=== PATIENT | female | born 1950 | race Caucasian/White ===

== ENCOUNTER 2020-06-04 18:20 | Emergency (ER) | payer OTHER, SELFPAY ==
[2020-06-04] VITALS (8 sets, daily range): BP systolic 168–195; BP diastolic 72–91; PULSE 54–59; RESP 14–26; O2SAT 97–100
--- NOTE | 2020-06-04 19:01 | ED_ITS ---
HPI - General Adult General Chief complaint: Extremity Injury, Upper Stated complaint: possible blood clot Time Seen by Provider: 06/04/20 18:36 Source: patient and family Mode of arrival: Ambulatory Limitations: no limitations History of Present Illness HPI narrative: Patient is a 69-year-old female who was sent in by her primary doctor for concerns of a potential blood clot in her right upper extremity. History is reported as a couple days ago hurting her right shoulder. Patient states she has torn her rotator cuff in the past and she thought that she tore it again a couple days ago. Since that time in today she has been seen at a walk-in clinic where she received a steroid shot in her right shoulder. It appears that since that time she has had increasing pain in her right hand. Her daughter who is at bedside states that she thought that her hand was white and cold compared to her left hand earlier today. They both admit that this has resolved since that time. Patient is also complaining of pain in her right neck. Also tingling down her right arm. They contacted their primary doctor who told her to come in to be evaluated as they were concerned about a blood clot. Related Data Home Medications Medication Instructions Recorded Confirmed acetaminophen 1,000 mg PO QID 06/04/20 06/04/20 donepezil 10 mg PO DAILY 06/04/20 06/04/20 sertraline 25 mg PO DAILY 06/04/20 06/04/20 verapamil 240 mg PO DAILY 06/04/20 06/04/20 Previous Rx's Medication Instructions Recorded methocarbamol [Robaxin-750] 750 mg PO TID PRN #30 tab 06/04/20 tramadol 50 mg PO Q8H PRN #10 tab 06/04/20 Allergies Allergy/AdvReac Type Severity Reaction Status Date / Time codeine Allergy Severe Vomiting Verified 06/04/20 20:57 Review of Systems Constitutional Constitutional: Denies fever(s) and Denies headache(s) ENT Ears, Nose, Mouth, and Throat: Denies headache(s) and Reports neck pain Cardiovascular Cardiovascular: Denies chest pain and Denies dyspnea Respiratory Respiratory: Denies dyspnea Gastrointestinal Gastrointestinal: Denies abdominal pain, Denies nausea and Denies vomiting Musculoskeletal Musculoskeletal: Reports arthralgias (Right shoulder), Reports neck pain and Reports tingling Integumentary/Breasts Comments: White hand Neurologic Neurologic: Denies headache(s) and Reports tingling Psychiatric Psychiatric: Denies anxiety Patient History Medical History Hypertension Social History lives independently: Yes Exam Initial Vital Signs Initial Vital Signs: Vital Signs Pulse Rate 59 L 06/04/20 18:25 Respiratory Rate 20 06/04/20 18:25 Blood Pressure 177/81 H 06/04/20 18:25 Pulse Oximetry 100 06/04/20 18:25 Const General: cooperative and comfortable Limitations: mental status not altered HENMT Head: normal to inspection and normocephalic Neck Neck: no meningeal signs Lymphatic: No lymphedema and No lymphadenopathy Resp Effort & Inspection: normal respiratory effort Auscultation: clear to auscultation bilaterally Cardio Rate: regular rate Rhythm: regular rhythm Pulses: radial pulses present on the right Back/Spine/Pelvis Cervical Spine: cervical muscular tenderness (Right-sided), No cervical spasm and No cervical spinal tenderness Skin General: No erythema and No pallor Lesions: no lesions Rashes: no rashes Neuro General: patient alert and patient awake Speech: speech normal Sensory Exam: no sensory deficits noted Extrem General: normal to inspection and capillary refill normal Other: Diffuse tenderness around the right shoulder with palpation. Psych Appearance: grossly normal and well kempt Course Orders Ordered: ED Orders 06/04/20 18:37 EKG-12 Lead Stat 06/04/20 19:06 Complete Blood Count AUTO DIFF Stat Comprehensive Metabolic Panel Stat D Dimer Stat Lactate (Lactic Acid) Stat Lipase Stat Partial Thromboplastin Time Stat Prothrombin Time INR Stat Troponin & CK Cardiac Panel Stat Discontinued Medications Acetaminophen/Codeine Phosphate (Codeine/Acetaminophen 30/300 Tablet) 1 tab PO NOW ONE Stop: 06/04/20 20:44 Last Admin: 06/04/20 20:55 Dose: Not Given Documented by: RAQUEL Cyclobenzaprine HCl (Cyclobenzaprine 10 Mg Tablet) 10 mg PO NOW ONE Stop: 06/04/20 20:44 Last Admin: 06/04/20 20:52 Dose: 10 mg Documented by: RAQUEL Sodium Chloride (Normal Saline 0.9%) 1,000 mls @ 1,000 mls/hr IV BOLUS ONE Stop: 12/23/20 19:36 Last Infusion: 06/04/20 20:44 Dose: 0 mls/hr Documented by: Infusion: 06/04/20 19:53 Dose: 999 mls/hr Documented by: Admin: 06/04/20 19:20 Dose: 500 mls/hr Documented by: RAQUEL Tramadol HCl (Tramadol 50 Mg Tablet) 50 mg PO NOW ONE Stop: 06/04/20 20:58 Last Admin: 06/04/20 21:02 Dose: 50 mg Documented by: RAQUEL Vital Signs Vital signs: Vital Signs - 8 hr 06/04/20 18:25 06/04/20 18:59 06/04/20 19:00 Pulse Rate 59 L 57 L 59 L Respiratory Rate 20 Blood Pressure 177/81 H 180/72 H Pulse Oximetry 100 97 97 06/04/20 19:30 06/04/20 19:31 06/04/20 20:00 Pulse Rate 55 L 54 L 58 L Respiratory Rate 24 21 26 H Blood Pressure 195/85 H Pulse Oximetry 97 97 97 06/04/20 20:03 06/04/20 21:11 Pulse Rate 56 L 58 L Respiratory Rate 20 14 Blood Pressure 193/91 H 168/72 H Pulse Oximetry 99 98 Medical Decision Making Lab Data Lab results reviewed: Yes I reviewed the patient's lab results. Result diagrams: 06/04/20 19:06 06/04/20 19:06 Labs: Lab Results 06/04/20 06/04/20 06/04/20 Range/Units 19:06 19:06 19:06 WBC 9.2 (4.5-11.0) X10^3/uL RBC 4.08 (4.0-5.2) X10^6/uL Hgb 12.4 (12.0-16.0) g/dL Hct 36.7 (36-46) % MCV 90.0 (80-100) fL MCH 30.3 (26-34) PG MCHC 33.7 (30-36) % RDW 13.1 (11.6-14.8) % Plt Count 322 (150-400) X10^3/uL Neut % (Auto) 56.1 (50-75) % Lymph % (Auto) 32.8 (25-40) % [place] % (Auto) 8.5 (3-14) % Eos % (Auto) 1.7 L (2-4) % Baso % (Auto) 0.9 (0-2) % Neut # (Auto) 5200 (9258-8885) /uL Lymph # (Auto) 3000 (5132-3271) /uL [place] # (Auto) 800 (0-900) /uL Eos # (Auto) 200 (0-450) /uL Baso # (Auto) 100 (0-100) /uL PT 11.1 (10.1-12.7) SECONDS INR 1.0 (0.9-1.3) APTT 27 (26.4-36.2) SECONDS D-Dimer < 200 (<230) ng/mL Sodium 138 (137-145) mmol/L Potassium 3.9 (3.4-5.1) mmol/L Chloride 108 H (98-107) mmol/L Carbon Dioxide 25 (22-32) mmol/L BUN 24 H (7-17) mg/dL Creatinine 1.12 H (0.52-1.04) mg/dL Estimated GFR 48.0 L (>60) mL/min BUN/Creatinine Ratio 21.4 (6-22) Glucose 124 H (80-110) mg/dL Lactate (0.7-2.1) mmol/L Calcium 9.0 (8.4-10.2) mg/dL Total Bilirubin 0.3 (0.2-1.3) mg/dL AST 27 (14-36) IU/L ALT 16 (<35) IU/L Alkaline Phosphatase 63 (38-126) U/L Total Creatine Kinase 74 (30-135) U/L CK-MB (CK-2) TNP CK-MB (CK-2) Rel Index TNP Troponin I < 0.012 (0.01-0.034) ng/mL Total Protein 6.6 (6.3-8.2) g/dL Albumin 3.9 (3.5-5.0) g/dL Globulin 2.7 (1.7-4.1) g/dL Albumin/Globulin Ratio 1.4 (1.0-2.8) Lipase (23-300) U/L 06/04/20 06/04/20 Range/Units 19:06 19:06 WBC (4.5-11.0) X10^3/uL RBC (4.0-5.2) X10^6/uL Hgb (12.0-16.0) g/dL Hct (36-46) % MCV (80-100) fL MCH (26-34) PG MCHC (30-36) % RDW (11.6-14.8) % Plt Count (150-400) X10^3/uL Neut % (Auto) (50-75) % Lymph % (Auto) (25-40) % [place] % (Auto) (3-14) % Eos % (Auto) (2-4) % Baso % (Auto) (0-2) % Neut # (Auto) (2121-6410) /uL Lymph # (Auto) (3183-3280) /uL [place] # (Auto) (0-900) /uL Eos # (Auto) (0-450) /uL Baso # (Auto) (0-100) /uL PT (10.1-12.7) SECONDS INR (0.9-1.3) APTT (26.4-36.2) SECONDS D-Dimer (<230) ng/mL Sodium (137-145) mmol/L Potassium (3.4-5.1) mmol/L Chloride (98-107) mmol/L Carbon Dioxide (22-32) mmol/L BUN (7-17) mg/dL Creatinine (0.52-1.04) mg/dL Estimated GFR (>60) mL/min BUN/Creatinine Ratio (6-22) Glucose (80-110) mg/dL Lactate 1.0 (0.7-2.1) mmol/L Calcium (8.4-10.2) mg/dL Total Bilirubin (0.2-1.3) mg/dL AST (14-36) IU/L ALT (<35) IU/L Alkaline Phosphatase (38-126) U/L Total Creatine Kinase (30-135) U/L CK-MB (CK-2) CK-MB (CK-2) Rel Index Troponin I (0.01-0.034) ng/mL Total Protein (6.3-8.2) g/dL Albumin (3.5-5.0) g/dL Globulin (1.7-4.1) g/dL Albumin/Globulin Ratio (1.0-2.8) Lipase 251 (23-300) U/L ECG Data Attestation: I personally reviewed and interpreted this ECG as follows: Prior ECG tracings: not available for review Interpretation: Sinus bradycardia Ventricular rate of 56 Normal axis Normal QRS Normal QTC No ST T wave changes MDM Narrative Medical decision making narrative: I see Nor feel no temperature difference or color difference between the right upper extremity and left upper extremity. She has very strong palpable radial pulses on the right. Also has capillary refill that is less than 2 seconds on the right. Her D-dimer is negative. Her EKG is unremarkable. She denies any chest pain. Had a long discussion with both the patient and her daughter regarding the symptoms. I did inform them that if it was a color change/temperature change in her right upper extremity that we would be worried about a arterial clot not a venous clot. We also discussed the workup both arterial and venous clots to include CTA and ultrasound. I feel that given her presentation currently that both these are unlikely. I feel DVT is unlikely given the negative D-dimer. I feel an arterial clot is unlikely given her clinical presentation. We did discuss the fact that a steroid injection can potentially cause her symptoms to be worse for the 1st couple days after the injection. She has a negative Spurling's maneuver. I feel no muscle spasms in the right side of her neck although the patient feels like she is having a spasm. Had a discussion with her and her daughter regarding this. We did discuss putting her on symptom treatment for now and will have her contact her primary provider to discuss further workup to include either a MRI verses physical therapy versus orthopedic follow-up. I were given return precautions and follow-up instructions. They both expressed understanding and agreement. Discharge Plan Departure Patient Disposition: Home Clinical Impression: Acute neck pain, Acute shoulder pain, Radiculopathy of arm Instructions: DI for Cervical Radiculopathy Activity Restrictions/Additional Instructions: The medications that you were prescribed can cause you to be drowsy. I recommend that after the holiday you contact your primary doctor to discuss further workup to include a referral to see Physical therapy or Orthopedics for further imaging such as an MRI. Return to the emergency department for any new or worsening symptoms. Her prescriptions were transmitted to [facility] on [facility] Prescriptions: New methocarbamol [Robaxin-750] 750 mg tablet 750 mg PO TID PRN (Reason: muscle spasm) Qty: 30 RF: 0 tramadol 50 mg tablet 50 mg PO Q8H PRN (Reason: pain) Qty: 10 RF: 0 No Action donepezil 10 mg tablet 10 mg PO DAILY RF: 0 sertraline 25 mg tablet 25 mg PO DAILY RF: 0 verapamil 240 mg tablet extended release 240 mg PO DAILY RF: 0 acetaminophen 500 mg Capsule 1,000 mg PO QID RF: 0
[2020-06-04 19:17] LABS: Add Manual Diff / Slide Review NO; Basophils Absolute Auto 100 /uL (0-100); Basophils Percent Auto 0.9 % (0-2); Eosinophils Absolute Auto 200 /uL (0-450); Eosinophils Percent Auto 1.7 % (2-4); Hematocrit 36.7 % (36-46); Hemoglobin 12.4 g/dL (12.0-16.0); Lymphocytes Absolute Auto 3000 /uL (1100-4500); Lymphocytes Percent Auto 32.8 % (25-40); Mean Corpuscular HGB Conc 33.7 % (30-36); Mean Corpuscular Hemoglobin 30.3 PG (26-34); Monocytes Absolute Auto 800 /uL (0-900); Monocytes Percent Auto 8.5 % (3-14); Neutrophils Absolute Auto 5200 /uL (1500-7000); Neutrophils Percent Auto 56.1 % (50-75); Platelet Count 322 X10^3/uL (150-400); Red Blood Cell Count 4.08 X10^6/uL (4.0-5.2); Red Cell Distribution Width 13.1 % (11.6-14.8); White Blood Cell Count 9.2 X10^3/uL (4.5-11.0)
[2020-06-04] MEDS: SODIUM CHLORIDE 0.9% 1,000 ML 500 ML IV (19:20)
[2020-06-04 19:27] LABS: Prothrombin Time 11.1 SECONDS (10.1-12.7)
[2020-06-04 19:30] LABS: PTT Partial Thromboplastin Tim 27 SECONDS (26.4-36.2)
[2020-06-04 19:33] LABS: Alanine Aminotransferase 16 IU/L (<35); Albumin 3.9 g/dL (3.5-5.0); Albumin Globulin Ratio 1.4 (1.0-2.8); Alkaline Phosphatase 63 U/L (38-126); Aspartate Aminotransferase 27 IU/L (14-36); BUN Creatinine Ratio 21.4 (6-22); Bilirubin Total 0.3 mg/dL (0.2-1.3); Blood Urea Nitrogen 24 mg/dL (7-17); Carbon Dioxide 25 mmol/L (22-32); Chloride 108 mmol/L (98-107); Creatine Kinase 74 U/L (30-135); Globulin 2.7 g/dL (1.7-4.1); Glucose 124 mg/dL (80-110); HEMOLYSIS 21 (0-50); Potassium 3.9 mmol/L (3.4-5.1); Sodium 138 mmol/L (137-145); Total Protein 6.6 g/dL (6.3-8.2)
[2020-06-04 19:34] LABS: D Dimer < 200 ng/mL (<230)
[2020-06-04 19:43] LABS: Troponin I < 0.012 ng/mL (0.01-0.034)
[2020-06-04 19:53] LABS: Lipase 251 U/L (23-300)
[2020-06-04] MEDS: CYCLOBENZAPRINE 10 MG TABLET PO (20:52)
[2020-06-04] MEDS: TRAMADOL 50 MG TABLET PO (21:02)
== END 2020-06-04 21:12 | disposition home or self-care (01) ==
PROVIDERS: Emergency Provider Emergency Medicine
DX: M54.2 Cervicalgia (principal); M25.511 Pain in right shoulder; M54.10 Radiculopathy, site unspecified; R20.2 Paresthesia of skin; I10 Essential (primary) hypertension
CPT/HCPCS: 36415; 80053; 82550; 83605; 83690; 84484; 85025; 85379; 85610; 85730; 93005; 96360; 99283; 99284

== ENCOUNTER 2021-02-03 19:23 | Emergency (ER) | payer OTHER, SELFPAY ==
[2021-02-03 19:59] VITALS: BMI 25.7
--- NOTE | 2021-02-03 20:08 | DI.CT.S_ITS ---
PROCEDURE: CT HEAD/BRAIN WO CON INDICATIONS: head injury TECHNIQUE: Noncontrast 4.5 mm thick angled axial sections acquired from the foramen magnum to the vertex, with coronal and sagittal reformats. For radiation dose reduction, the following was used: automated exposure control, adjustment of mA and/or kV according to patient size. COMPARISON: None. FINDINGS: Image quality: Excellent. CSF spaces: Basal cisterns are patent. No extra-axial fluid collections. The ventricles are symmetric in size and shape. Brain: No intracranial bleeds or masses. There is cerebral volume loss for age, with resultant ventricular and sulcal prominence. There are periventricular and deep white matter chronic small vessel ischemic changes. There is intracranial internal carotid artery atherosclerosis. Skull and face: Calvarium and visualized facial bones appear intact, without suspicious lesions. Left parietal scalp hematoma. Sinuses: Visualized sinuses and mastoids are clear. IMPRESSION: No acute intracranial disease process. Dictated by: Elvie Herzog MD, PhD on 02/03/2021 at 21:15 Approved by: Elvie Herzog MD, PhD on 02/03/2021 at 21:17
[2021-02-03 20:55] VITALS: BP 184/84; PULSE 60; RESP 20; TEMP 36.6; O2SAT 98
--- NOTE | 2021-02-03 23:22 | ED.HEATRA ---
HPI - Head Injury General Chief complaint: Head Injury Stated complaint: FELL DOWN HIT HEAD Time Seen by Provider: 02/03/21 23:21 Source: patient Mode of arrival: Ambulatory Limitations: no limitations History of Present Illness HPI Narrative: The patient is a 70-year-old female who has history of hypertension presents after closed head injury. She was getting out of an unfamiliar car when she fell backwards hitting her head. She initially had a large bump on the left but it has gone down. She is not on any antiplatelet or anticoagulation medication she has no nausea vomiting numbness tingling or weakness. She has been in the emergency department for number of hours now sleeping but easily arousable. Not taken her nightly blood pressure medications her blood pressure is noted to be elevated. Related Data Home Medications Medication Instructions Recorded Confirmed acetaminophen 500 mg capsule 1,000 mg PO QID 06/04/20 06/04/20 donepezil 10 mg tablet 10 mg PO DAILY 06/04/20 06/04/20 sertraline 25 mg tablet 25 mg PO DAILY 06/04/20 06/04/20 verapamil 240 mg tablet,extended 240 mg PO DAILY 06/04/20 06/04/20 release Previous Rx's Medication Instructions Recorded methocarbamol 750 mg tablet 750 mg PO TID PRN #30 tab 06/04/20 (Robaxin-750) tramadol 50 mg tablet 50 mg PO Q8H PRN #10 tab 06/04/20 Allergies Allergy/AdvReac Type Severity Reaction Status Date / Time codeine Allergy Severe Vomiting Verified 06/04/20 20:57 Review of Systems Review of Systems Narrative: GENERAL: Denies chills, fatigue, malaise, fever, sweats, travel HEENT: Denies sinus pain, ear pain, sore throat, difficulty swallowing, neck pain RESPIRATORY: Denies dyspnea, cough, wheezing, hemoptysis, sputum. CARDIOVASCULAR: Denies chest pain, palpitations, orthopnea, edema GASTROINTESTINAL: Denies nausea, vomiting, abdominal pain, diarrhea, constipation, melena. : Denies dysuria, frequency, incontinence, hematuria, urinary retention, flank pain. MUSCULOSKELETAL: Denies weakness, joint pain, or bony pain SKIN: No rash, no erythema, no pruritus NEUROLOGIC: Denies weakness, dizziness, headache, numbness, change in speech, confusion PSYCHIATRIC: No concerning psychosocial issues. 12 point review of systems is negative except for those stated above and HPI Patient History Medical History Hypertension Social History lives independently: Yes Smoking Status: Never smoker Smoking Status: Never smoker Substance Use Type: does not use Exam Initial Vital Signs Initial Vital Signs: Vital Signs Temperature 97.9 F 02/03/21 20:55 Pulse Rate 60 02/03/21 20:55 Respiratory Rate 20 02/03/21 20:55 Blood Pressure 184/84 H 02/03/21 20:55 Pulse Oximetry 98 02/03/21 20:55 GENERAL: Well-appearing, well-nourished and in no acute distress. HEENT: Head small left posterior hematoma no laceration no abrasion NECK: No vertebral tenderness no step-off full range of motion CARDIOVASCULAR: Regular rate and rhythm without murmurs, rubs or gallops. RESPIRATORY: Breath sounds equal bilaterally, no wheezes rales or rhonchi. ABDOMEN: Soft, nontender. Normoactive bowel sounds all 4 quadrants. No guarding or rebound. EXTREMITIES: Normal range of motion, no clubbing or edema. Neurovascularly intact. Pelvis stable NEUROLOGICAL: Alert and oriented x4.Normal gait and speech. [employer] Research [employer] strength equal bilaterally moving both lower extremities SKIN: Warm, dry, no laceration, no petechiae, no rashes or lesions. Scores NIH Stroke Scale Level of Conciousness: Alert, keenly responsive Ask month/age: Answers both questions correctly. Open/close eyes, close hand: Performs both tasks correctly Best gaze horizontal: Normal Visual miner: No visual loss Facial palsy: Normal symetrical movement Left arm drift: No drift for full 10 sec Right arm drift: No drift for full 10 sec Left leg drift: No drift for full 5 sec Right leg drift: No drift for full 5 sec Limb ataxia: Absent Sensory on face/arms/legs: Normal, no sensory loss Best language: No aphasia, normal Dysarthria: Normal Extinction or inattention: No abnormality Total NIH Stroke scale score: 0 Course Orders Ordered: ED Orders 02/03/21 20:08 CT head/brain wo con Stat Vital Signs Vital signs: Vital Signs - 8 hr 02/03/21 20:55 02/03/21 23:45 Temperature 97.9 F Pulse Rate 60 62 Respiratory Rate 20 15 Blood Pressure 184/84 H 195/93 H Pulse Oximetry 98 99 MDM - Head Injury Imaging Data CT scan - head: Radiologist's Impression: No acute intracranial disease process MDM Narrative Medical decision making narrative: The patient overall appears well she is sleeping easily woken she has no focal deficit she has not had any nausea or vomiting. Her blood pressure is noted to be elevated. She states that her blood pressure is always high in the doctor's office and she has not taken her nightly blood pressure medications. At this time she has or chest pain palpitations. I recommend she take her blood pressure medication and monitor her pressure at home. Discharge Plan Departure Patient Disposition: Home Clinical Impression: Head injury Instructions: DI for Closed Head Injury Activity Restrictions/Additional Instructions: *You have been diagnosed with closed head injury *What to do: At this time her CT scan is negative. He he may ice as needed intake medications as needed for pain. Expect to be sore the next day. Blood pressure is 100 be quite elevated in the emergency department. Please monitor blood pressure at home and be sure to take her blood pressure medications. If blood pressure is persistently elevated he may need adjustment in her medications. *Continue to take medications as directed Tylenol 650 mg every 4-6 hours if needed for pain Motrin 600 mg every 6-8 hours if needed for pain *Follow up with your primary care provider in 2-3 days *Return to ER if you should have increasing pain, persistent vomiting, weakness numbness tingling, worsening confusion or any new, worsening or concerning symptoms Prescriptions: No Action donepezil 10 mg tablet 10 mg PO DAILY RF: 0 sertraline 25 mg tablet 25 mg PO DAILY RF: 0 verapamil 240 mg tablet extended release 240 mg PO DAILY RF: 0 acetaminophen 500 mg Capsule 1,000 mg PO QID RF: 0 methocarbamol [Robaxin-750] 750 mg tablet 750 mg PO TID PRN (Reason: muscle spasm) Qty: 30 RF: 0 tramadol 50 mg tablet 50 mg PO Q8H PRN (Reason: pain) Qty: 10 RF: 0 Referrals: Jessie Aldridge PA-C [Primary Care Provider] -
[2021-02-03 23:45] VITALS: BP 195/93; PULSE 62; RESP 15; O2SAT 99
== END 2021-02-03 23:50 | disposition home or self-care (01) ==
PROVIDERS: Emergency Provider Emergency Medicine; PCP Physician Assistant
DX: S09.90XA Unspecified injury of head, initial encounter (principal); W22.8XXA Striking against or struck by other objects, initial encounter
CPT/HCPCS: 70450; 99281; 99284